=== PATIENT | male | born 1995 | race Caucasian/White ===

== ENCOUNTER 2019-01-17 07:31 | Emergency (ER) | payer SELFPAY ==
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
== END 2019-01-17 09:11 | disposition home or self-care (01) ==
LOC: ER 07:31
DX: S13.4XXA Sprain of ligaments of cervical spine, initial encounter (principal); V49.40XA Driver injured in collision with unspecified motor vehicles in traffic accident, initial encounter; Z88.1 Allergy status to other antibiotic agents
CPT/HCPCS: 72100; 99283